=== PATIENT | male | born 1950 | race Caucasian/White ===

== ENCOUNTER 2017-02-16 19:29 | Emergency (ER) | payer MEDICARE ==
[~2017-02-16] VITALS: Ht 188 cm; Wt 100.0 kg
[~2017-02-16 19:29] MED LIST: /PANT40TA PO; CANNABIS OIL PO; CYCL10TA3 PO; DICY20TA11 PO; DOXY100T2 PO; ELIQ5TAB PO; EXTR500C4 PO; FENT25DI22 TD; FLAG500T PO; GAVISOL3 PO; LACT10SO29 PO; LEVO88TA3 PO; LINZ290C PO; LOVE0.01 SQ; METO50TA7 PO; MORP15TA2 PO; MS C15TA8 PO; NORC1TAB4 PO; OPDI1INJ IV; PERC5TAB PO; PERCOCET PO; PRED10TA PO; ROCE1INJ4 IM; SENN-23 PO; TOPR25TA PO; [UNRECOGNIZED DRUG - OTHER] PO
[2017-02-16] MEDS ORDERED: ZOFR8TAB PO (19:44)
[2017-02-16] MEDS ORDERED: FOLI800C PO (19:44)
[2017-02-16] MEDS ORDERED: LOPR1TAB6 PO (19:44)
[2017-02-16] MEDS ORDERED: ACETAMINOPHEN 325 MG TAB PO ONE (20:00)
[2017-02-16] MEDS ORDERED: NS 1,000 ML IV ONE (20:00)
[2017-02-16 20:22] LABS: ADD MORPHOLOGY? YES; BASO % 0.2 % (0.0-1.0); EOS # 0.2 K/mm3 (0.0-0.50); EOS % 2.2 % (0.0-3.0); LARGE UNSTAINED CELL # 0.2 K/mm3 (0.0-0.4); LYMPH # 0.8 K/mm3 (1.5-4.5); LYMPH % 6.2 % (24.0-44.0); MEAN CORPUSCULAR HGB CONC 33.3 g/dl (32.0-36.5); MEAN CORPUSCULAR VOLUME 108.2 fl (80.0-96.0); MONO # 0.2 K/mm3 (0.0-0.8); MONO % 2.1 % (0.0-5.0); NEUTROPHILS # 8.7 K/mm3 (1.8-7.7); NEUTROPHILS % 87.1 % (36.0-66.0); PLATELET COUNT, AUTOMATED 264 k/mm3 (150-450)
[2017-02-16 20:37] LABS: ALBUMIN 2.7 GM/DL (3.2-5.2); ALBUMIN/GLOBULIN RATIO 0.66 (1.00-1.93); BILIRUBIN,DIRECT 0.3 MG/DL (0.0-0.2); BILIRUBIN,TOTAL 0.7 MG/DL (0.2-1.0); CALCIUM LEVEL 8.8 MG/DL (8.8-10.2); CREATININE FOR GFR 1.29 MG/DL (0.70-1.30); GLOMERULAR FILTRATION RATE 59.1 (>49); TOTAL PROTEIN 6.8 GM/DL (6.4-8.2)
[2017-02-16 21:24] LABS: ABG PARTIAL PRESSURE CO2 29.4 mmHg (35.0-45.0); ABG PARTIAL PRESSURE O2 105.1 mmHg (75.0-100.0); ABG TOTAL CO2 20.9 MEQ/L (23.0-31.0)
[2017-02-16 21:40] LABS: ANISOCYTOSIS 2+; HOWELL-JOLLY BODIES 2+; HYPOCHROMASIA 1+; PLATELET CLUMPS SMALL AMT
[2017-02-16] MEDS ORDERED: ISOVUE-370 76% 100ML VIAL (Q9967) As Ordered ONE (22:23)
--- NOTE | 2017-02-16 23:10 | REPUSA ---
CT angiogram of the chest Clinical statement: dyspnea. Technique: Multiple axial CT images were obtained from the thoracic inlet through the upper abdomen a fter a bolus administration of nonionic intravenous contrast. Coronal and sagittal reconstructions we re also obtained. Comparison: 05/26/2016. Findings: The pulmonary arteries are well-opacified with contrast, with no intraluminal filling defec ts to suggest embolism. The thoracic aorta is unremarkable. Thyroid gland is within normal limits. Th ere is no thoracic lymphadenopathy. There is a persistent consolidation in the left perihilar region extending into the lingula of the left lung. Air bronchograms are seen within this region. A small le ft-sided pleural effusion remains. Bronchiectasis with mild parenchymal scarring in the medial aspect of the left upper lobe is also stable. The mild emphysematous changes are stable. Limited imaging of the upper abdomen is unremarkable. There is mild chronic anterior compression abnormality of T6, wit h sclerotic changes throughout the vertebral body. Impression: 1. No evidence of pulmonary embolism. 2. Persistent consolidation in the left perihilar region extending into the lingula. Although this co uld represent pneumonia, the persistent nature of this finding is suspicious for neoplasm. Follow-up is recommended as clinically indicated. 3. Stable bronchiectasis and parenchymal changes in the medial left upper lobe. 4. The right lung is clear. 5. Mild stable emphysema. 6. Stable compression fracture of T6.
--- NOTE | 2017-02-16 23:19 | REP ---
Clinical: Dyspnea and fever. Technique: PA and lateral. Comparison: 05/26/2016. Findings: Jwvyih-D-Nipc identified with tip in the SVC. Cardiac silhouette appears normal. Diffuse acute on chronic fibro atelectatic changes are noted bilaterally along with left perihilar mass-like consolidation which may be minimally improved when compared to prior examination. No new acute consolidation, obvious effusion or pneumothorax appreciated skeletal structures demonstrate osteopenia and degenerative changes. Impression: Left perihilar mass-like consolidation minimally improved compared to prior examination. Diffuse acute on chronic fibro atelectatic changes. Signed by Kei Martinez MD 02/16/2017 11:12 P
[2017-02-17 00:17] VITALS: BP_DIAS 69
--- NOTE | 2017-02-17 06:52 | ED PDOC ---
Post-Departure Follow-Up dr melgoza faxed formal report of cxr for fu Patricia Bower MD Feb 17, 2017 06:52
== END 2017-02-17 00:21 | disposition home or self-care (01) ==
LOC: M ED 19:29
DX: B34.9 Viral infection, unspecified (principal); R91.8 Other nonspecific abnormal finding of lung field; I10 Essential (primary) hypertension; E03.9 Hypothyroidism, unspecified; Z86.718 Personal history of other venous thrombosis and embolism; Z85.118 Personal history of other malignant neoplasm of bronchus and lung; Z87.891 Personal history of nicotine dependence; Z79.01 Long term (current) use of anticoagulants; Z79.899 Other long term (current) drug therapy; Z88.6 Allergy status to analgesic agent; Z91.02 Food additives allergy status
CPT/HCPCS: 36600; 71020; 71275; 80048; 80076; 81001; 82803; 83605; 85025; 87040; 87086; 96360; 99284; Q9967

== ENCOUNTER 2017-05-14 04:28 | Emergency (ER) | payer MEDICARE ==
[~2017-05-14] VITALS: Ht 188 cm; Wt 98.0 kg
[~2017-05-14 04:28] MED LIST changes: +FOLI800C PO; +LOPR1TAB6 PO; +ZOFR8TAB PO
[2017-05-14] MEDS ORDERED: MORP-38 PO (04:45)
[2017-05-14] MEDS ORDERED: GABA-283 PO (04:45)
[2017-05-14] MEDS ORDERED: MORP15TA2 PO (04:45)
[2017-05-14] MEDS ORDERED: ELIQ5TAB PO (04:45)
[2017-05-14] MEDS ORDERED: MORPHINE 4 MG/ML 1ML SYRINGE IV ONE (05:30)
--- NOTE | 2017-05-14 07:20 | REPUSA ---
CLINICAL HISTORY: Trauma. TECHNIQUE: Multiple axial CT images were obtained through the brain without IV contrast material. COMMENTS: There is normal configuration of sella turcica. There are no intra or extra-axial collections. There is no mass effect or midline shift. There is no evidence of hematoma formation. No hydrocephalus is p resent. The ventricles are symmetrical. No abnormal calcifications are present. There is diffuse age-appropriate cerebellar and cerebral atrophy with proportionally dilated ventricl es and cortical sulci. There are bilateral periventricular and subcortical white matter hypolucencies compatible with mild c hronic microvascular disease. Otherwise, no significant focal abnormalities are seen either in the posterior fossa or supratentoria l compartment. Mild chronic mucosal inflammatory changes of the maxillary sinuses and ethmoid air cells. IMPRESSION: 1. Age-appropriate cerebellar and cerebral atrophy. 2. Mild chronic microvascular disease. 3. No evidence of acute intracranial pathology. Thank you for your kind referral of this patient.
--- NOTE | 2017-05-14 07:40 | REPUSA ---
CLINICAL HISTORY: Neck pain. TECHNIQUE: Multiple axial images were obtained through the cervical spine. Images were also reconstru cted in coronal and sagittal planes. The study was performed without IV contrast. COMMENTS: Detached osteophyte adjacent to the inferior endplate of C3. Chronic finding. There is no fracture or spondylolisthesis visualized. The paraspinal soft tissues are unremarkable. T here are no lytic or blastic lesions. 2.5 mm retrolisthesis of C5 on C6. Straightening of cervical lordosis is seen, suggesting muscular spasm. There is evidence of moderate multilevel disk disease, demonstrated by osteophytosis and endplate sclerosis. Moderate multilevel degenerative disc disease. IMPRESSION: 1. No fracture or spondylolisthesis. 2. Straightening of cervical lordosis is seen, suggesting muscular spasm. 3. Mltilevel spondylosis. Thank you for your kind referral of this patient.
--- NOTE | 2017-05-14 07:40 | REPUSA ---
CLINICAL HISTORY: Trauma. TECHNIQUE: Multiple axial CT images were obtained through the thoracic spine without IV contrast mate rial. MPR coronal and sagittal sequences were obtained. COMMENTS: Mild osteopenia of visualized bones. Moderate chronic compression fracture of T5 vertebral body with associated vertebral body sclerosis. Suspicion of superimposed inferior endplate to minimally acute/subacute compression deformity. Significant fat stranding surrounding the T5 vertebral body. Mild chronic compression deformities of the remaining thoracic vertebral bodies with prominent Schmor l's node formation. There are diffuse spondylotic changes. Findings are demonstrated by disc space narrowing, osteophyte formation and degenerative endplate changes. Facet joint arthropathy and degenerative uncovertebral j oint disease. No dislocation is seen. No aggressive bone lesion is noted. IMPRESSION: Mild osteopenia of visualized bones. Moderate chronic compression fracture of T5 vertebral body with associated vertebral body sclerosis. Suspicion of superimposed inferior endplate to minimally acute/subacute compression deformity. Chronic increased dorsal kyphosis. No associated retropulsion or secondary canal stenosis. Significant fat stranding surrounding the T5 vertebral body. Thank you for your kind referral of this patient.
--- NOTE | 2017-05-14 08:00 | REPUSA ---
CLINICAL HISTORY: Back pain. TECHNIQUE: Multiple axial images were obtained through the L1-L2, L2-L3, L3-L4, L4-L5 and L5-S1 inter spaces. Images were also reconstructed in coronal and sagittal planes. COMMENTS: Grade one anterolisthesis of L5 on S1 measuring 4.2 mm. There is no fracture visualized. The paraspinal soft tissues are unremarkable. There are no lytic or blastic lesions. Straightening of lumbar lordosis is seen, suggesting muscular spasm. There is evidence of multilevel disk disease, demonstrated by osteophytosis ad endplate sclerosis. Evaluation of individual levels reveals the following: At L4-L5 and L5-S1, broad-based disk protrusion in conjunction with hypertrophic facet disease result s in moderate bilateral foraminal narrowing. Canal is mildly stenotic. At L3-L4, broad-based disk bulge, results in mild bilateral foraminal narrowing. Canal is patent. L1-L2 and L2-L3 levels are unremarkable. IMPRESSION: 1. No fracture. Grade 1 anterolisthesis of L5 on S1 measuring 4.2 mm. 2. Straightening of lumbar lordosis is seen, suggesting muscular spasm. 3. At L4-L5 and L5-S1, broad-based disk protrusion in conjunction with hypertrophic facet disease res ults in moderate bilateral foraminal narrowing. . Canal is mildly stenotic. 4. At L3-L4, broad-based disk bulge, results in mild bilateral foraminal narrowing. Canal is patent. Thank you for your kind referral of this patient.
[2017-05-14] MEDS ORDERED: OXYC1TAB23 PO (08:10)
[2017-05-14] MEDS ORDERED: PERCOCET 5MG/325MG TAB PO ONE (08:15)
--- NOTE | 2017-05-14 10:26 | REP ---
Clinical: Left upper quadrant mass. Technique: Axial noncontrast images of the abdomen with coronal and sagittal re-formations. Comparison: 05/25/2016. Findings: Lung bases demonstrate small to moderate left pleural effusion with trace left lower lobe atelectasis and diffuse chronic interstitial changes/mild fibrosis. Chronic-appearing stranding and multiple small soft tissue nodules - some of which demonstrate central calcification are identified in the left upper quadrant with associated evidence for prior splenectomy. These findings may represent chronic post traumatic/post surgical changes and small regenerative splenules, and findings appear relatively similar to 2016 without increase. Liver, pancreas, bilateral adrenal glands and kidneys are relatively normal for noncontrast evaluation. Gallbladder is mildly distended with evidence for cholelithiasis, but no CT evidence for acute cholecystitis. Visualized portions of the enteric system appear relatively normal. No free air. No ascites. Atherosclerotic changes of the aorta noted along with IVC filter. Musculoskeletal structures demonstrate degenerative changes. Surrounding subcutaneous soft tissues appear relatively symmetric and without obvious hernia. Impression: 1. Lung wiggins demonstrate a small to moderate left pleural effusion with basilar atelectasis. 2. Mildly distended gallbladder with cholelithiasis but no CT evidence for acute cholecystitis. 3. Chronic-appearing nodular soft tissue lesions and stranding/infiltration in the left upper quadrant related to prior splenectomy. These findings appear relatively stable and possibly improved when compared to 2016 without new abnormality. 4. No further acute abdominal pathology is appreciated. Signed by Kei Martinez MD 05/14/2017 10:18 A
[2017-05-14] MEDS ORDERED: MORP30TASA PO (10:37)
[2017-05-14 10:54] VITALS: BP 146/69
== END 2017-05-14 11:04 | disposition home or self-care (01) ==
LOC: M ED 04:28
DX: S22.050A Wedge compression fracture of T5-T6 vertebra, initial encounter for closed fracture (principal); W10.9XXA Fall (on) (from) unspecified stairs and steps, initial encounter; Y92.9 Unspecified place or not applicable; Y93.9 Activity, unspecified; Y99.9 Unspecified external cause status; I10 Essential (primary) hypertension; C34.90 Malignant neoplasm of unspecified part of unspecified bronchus or lung; Z79.899 Other long term (current) drug therapy; Z86.718 Personal history of other venous thrombosis and embolism; Z87.891 Personal history of nicotine dependence; J90 Pleural effusion, not elsewhere classified; K82.8 Other specified diseases of gallbladder; K80.20 Calculus of gallbladder without cholecystitis without obstruction; R19.02 Left upper quadrant abdominal swelling, mass and lump; M47.892 Other spondylosis, cervical region; M43.16 Spondylolisthesis, lumbar region; M43.17 Spondylolisthesis, lumbosacral region; M51.26 Other intervertebral disc displacement, lumbar region; M51.27 Other intervertebral disc displacement, lumbosacral region; M85.88 Other specified disorders of bone density and structure, other site; Z79.01 Long term (current) use of anticoagulants; Z88.6 Allergy status to analgesic agent; Z91.02 Food additives allergy status

== ENCOUNTER 2017-06-02 18:20 | Inpatient (IN) | payer MEDICARE ==
[~2017-06-02] VITALS: Ht 182.9 cm; Wt 86.9 kg
[~2017-06-02 18:20] MED LIST changes: +GABA-283 PO; +MORP-38 PO; +MORP30TASA PO; +OXYC1TAB23 PO
[2017-06-02] MEDS ORDERED: ELIQ5TAB PO (18:37)
[2017-06-02] MEDS ORDERED: METO50TA7 (18:37)
[2017-06-02] MEDS: IPRATROPIUM 0.5MG/ALBUTEROL 2.5MG INH SOL UD 3ML (DUONEB)(J7620) NEB PRN ×2 (20:17→20:18)
[2017-06-02 20:19] LABS: ABG BASE EXCESS -1.4 (-2.0-2.0); ABG HCO3 21.2 MEQ/L (22.0-26.0); ABG PARTIAL PRESSURE CO2 27.4 mmHg (35.0-45.0); ABG PARTIAL PRESSURE O2 69.4 mmHg (75.0-100.0); ABG STANDARD HCO3 23.3 MEQ/L (22.0-26.0); ABG TOTAL CO2 22.1 MEQ/L (23.0-31.0); ABG pH (ARTERIAL) 7.507 UNITS (7.350-7.450)
[2017-06-02 20:38] LABS: MEAN CORPUSCULAR HEMOGLOBIN 33.9 pg (27.0-33.0); MEAN CORPUSCULAR HGB CONC 32.4 g/dl (32.0-36.5); MEAN CORPUSCULAR VOLUME 104.8 fl (80.0-96.0); PLATELET COUNT, AUTOMATED 575 10^3/uL (150-450)
[2017-06-02 21:00] LABS: ADD MANUAL DIFFER YES; DIFF SLIDE NUMBER 349; POSITIVE DIFF POS FLAG
[2017-06-02 21:04] LABS: ANION GAP 10 MEQ/L (8-16); BLOOD UREA NITROGEN 15 MG/DL (7-18); CARBON DIOXIDE LEVEL 23 MEQ/L (21-32); CHLORIDE LEVEL 105 MEQ/L (98-107); CREATININE FOR GFR 1.17 MG/DL (0.70-1.30); GLOMERULAR FILTRATION RATE > 60.0 (>49); GLUCOSE, FASTING 118 MG/DL (80-110); POTASSIUM SERUM 3.8 MEQ/L (3.5-5.1); SODIUM LEVEL 138 MEQ/L (136-145)
[2017-06-02 21:05] LABS: ANISOCYTOSIS 3+; HOWELL-JOLLY BODIES 2+
[2017-06-02] MEDS ORDERED: ISOVUE-370 76% 100ML VIAL (Q9967) As Ordered ONE (21:05)
[2017-06-02 21:06] LABS: ALBUMIN 1.9 GM/DL (3.2-5.2); ALBUMIN/GLOBULIN RATIO 0.4 (1.00-1.93); BILIRUBIN,DIRECT 0.2 MG/DL (0.0-0.2); BILIRUBIN,TOTAL 0.5 MG/DL (0.2-1.0); POIKILOCYTOSIS 1+; POLYCHROMASIA 1+; TOTAL PROTEIN 6.7 GM/DL (6.4-8.2)
[2017-06-02] MEDS ORDERED: ONDANSETRON 4MG/2ML VIAL (J2405) IV ONE (21:15)
[2017-06-02] MEDS: MORPHINE 4 MG/ML 1ML SYRINGE IV PRN (21:15)
--- NOTE | 2017-06-02 21:40 | REPUSA ---
CT angiogram of the chest Clinical statement: shortness of breath. Technique: Multiple axial CT images were obtained from the thoracic inlet through the upper abdomen a fter a bolus administration of nonionic intravenous contrast. Coronal and sagittal reconstructions we re also obtained. Comparison: 05/26/2016. Findings: The pulmonary arteries are well-opacified with contrast, with no intraluminal filling defec ts to suggest embolism. The thoracic aorta is unremarkable. Thyroid gland is within normal limits. Th ere is no thoracic lymphadenopathy. There are extensive ground glass infiltrates throughout the lungs , with upper lobe predominance. There is a moderate left-sided pleural effusion. Limited imaging of t he upper abdomen is unremarkable. There are no suspicious osseous lesions. Impression: 1. No evidence of pulmonary embolism. 2. Extensive ground glass infiltrates throughout the lungs, with upper lobe predominance. These findi ngs are new since the prior study of 2015. The findings could represent infectious or inflammatory pu lmonary processes. Follow-up is recommended as clinically indicated. 3. Moderate left-sided pleural effusion.
[2017-06-02] MEDS ORDERED: PIPERACILLIN/TAZOBACTAM SOD 3.375 GM in APPROPRIATE DILUENT 1 EA IV ONE ×2 (22:00→22:20)
[2017-06-02] MEDS ORDERED: MORP30TASA PO (22:55)
[2017-06-02] MEDS ORDERED: FLOM5CAP PO (22:55)
[2017-06-02] MEDS ORDERED: NS 1,000 ML IV SCH (23:46)
[2017-06-03] MEDS ORDERED: ONDANSETRON 4 MG TAB (S0181) PO PRN
[2017-06-03] MEDS ORDERED: PERCOCET 5MG/325MG TAB PO PRN
[2017-06-03] MEDS ORDERED: VANCOMYCIN HCL 1,000 MG, VIAL MATE ADAPTER 1 EACH in D5W 250 ML IV ONE ×3
[2017-06-03 00:32] LABS: ERYTHROCYTE SEDIMENTATION RATE 128 mm/hr (0-20)
--- NOTE | 2017-06-03 00:46 | HPE ---
DATE OF ADMISSION: 06/02/2017 PRIMARY CARE PROVIDER: Dr. Damon. ONCOLOGIST: Dr. William in [facility]. HISTORY OF PRESENT ILLNESS: This patient is a 66-year-old male with a past medical history significant for stage IV non-small cell lung cancer, history of left deep venous thrombosis (DVT), hypertension, presented to [facility] on 06/02/2017 for acute shortness of breath. Patient was diagnosed with non-small cell lung cancer since July 2009 and patient has metastases to the abdomen. In this year alone, patient has been receiving 12 rounds of chemotherapy. Patient is scheduled to follow with oncology on 06/03/2017 to assess the cancer metastases. However, in the last 4-5 days, patient started having fever and chills. Patient started to have increased shortness of breath during ambulation in the last 3 days. Now patient has shortness of breath at rest. Denies any cough or sputum production. When patient came to the emergency room, patient was found to have bilateral multifocal pneumonia and hospitalist team was called for admission. PAST MEDICAL HISTORY: 1. Non-small cell lung cancer diagnosed in July 2009, now with stage IV with abdominal metastases. 2. Hypertension. 3. History of DVT. 4. Hypothyroidism. PAST SURGICAL HISTORY: 1. Splenectomy. 2. Inferior vena cava (IVC) filter. 3. Cataract surgery. SOCIAL HISTORY: Patient quit smoking 17 years ago. Patient has been smoking since 16 years old. Smoked greater than one pack a day. Denied alcohol use. Denied recreational drug use. Patient is FULL CODE. REVIEW OF SYSTEMS: GENERAL: Positive fever, chills for the past few days. HEENT: No vision changes. No auditory changes. CARDIOVASCULAR: Denied any chest pain or palpitations. RESPIRATORY: Positive shortness of breath, initially during ambulation only, now patient has shortness of breath during rest. Denies any sputum production. Denies any cough. GASTROINTESTINAL: Patient has lung cancer metastases to the abdomen. Tender to palpation mainly on the left abdomen. No nausea. No vomiting. No diarrhea. MUSCULOSKELETAL: Chronic muscle pain. NEUROLOGICAL: Denied any new numbness or tingling. HOME MEDICATIONS: - Eliquis 5 mg by mouth twice a day - senna-S one tablet by mouth twice a day - Synthroid 88 mcg by mouth daily - metoprolol tartrate 50 mg by mouth twice a day - morphine sulfate 30 mg by mouth twice a day - Zofran 8 mg by mouth every 8 hours as needed - Percocet one tablet by mouth every 4 hours as needed - Flomax 0.4 mg by mouth daily OBJECTIVE: VITAL SIGNS: Temperature 98.2, pulse 100, respirations 16, blood pressure 117/67, pulse oximetry is 92% with 2 liters nasal cannula. GENERAL: Mild to moderate distress secondary to persistent shortness of breath. Alert and oriented times three. HEENT: Normocephalic, atraumatic. Extraocular motor grossly intact. Wearing corrective lenses. CARDIOVASCULAR: Positive systolic murmur, positive S1, S2, regular rate. LUNGS: Positive crackles bilaterally, but I cannot appreciate any significant wheezes. ABDOMEN: Tender to palpation right lateral to the mid abdomen. Patient stated that is where his cancer metastasis is located. Bowel sounds present. No rebound. EXTREMITIES: No edema. No cyanosis. NEUROLOGICAL: Sensation to fine touch grossly intact. Muscle strength 5/5. LABORATORY DATA: WBC 16, hemoglobin 7.8, hematocrit 24.1, platelet count is 575. Sodium is 138, potassium 3.8, chloride 105, carbon dioxide is 23, BUN 15, creatinine 1.17, GFR greater than 60, fasting glucose 118, calcium 9, total bilirubin 0.5, direct bilirubin 0.2, AST 30, ALT 15, alkaline phosphatase 152, total protein 6.7, albumin 1.9. IMAGING STUDIES: CT angiogram of the chest no evidence of PE. Extensive ground-glass infiltrates throughout the lungs with upper lobe predominance. Moderate left-sided pleural effusion. ASSESSMENT AND PLAN: 1. Multifocal pneumonia. Patient admitted to the progressive care unit (PCU) under inpatient status. Patient is immunocompromised from the chemotherapy. Followup with sputum. Blood cultures pending. Will start on broad-spectrum antibiotics vancomycin and Zosyn. Currently, patient's blood pressure has remained stable. 2. Stage IV non-small cell lung cancer. Patient just had 12 rounds of chemotherapy done in [facility]. Patient's oncologist is Dr. William. 3. History of hypertension. Blood pressure is in a satisfactory range at this moment. Continue home medications. 4. Hypothyroidism. Continue Synthroid. Followup with thyroid-stimulating hormone (TSH) tomorrow. 5. History of deep venous thrombosis (DVT). Patient has inferior vena cava (IVC) filter. Patient is on Xarelto. 6. DVT prophylaxis. Patient is on Xarelto.
[2017-06-03] MEDS: MORPHINE 4 MG/ML 1ML SYRINGE IV PRN (00:53)
[2017-06-03] MEDS: APIXABAN 5 MG TAB (ELIQUIS) PO SCH ×3 (01:46→21:24)
[2017-06-03] MEDS: METOPROLOL TART 50 MG TAB PO SCH ×3 (01:46→21:24)
[2017-06-03 02:03] LABS: REASON FOR REVIEW COMPREHENSIVE REVIEW
[2017-06-03] MEDS: PERCOCET 5MG/325MG TAB PO PRN ×4 (02:59→17:24)
[2017-06-03 04:00] VITALS: BP 117/62
[2017-06-03] MEDS: MORPHINE 2 MG/ML 1ML SYRINGE IV PRN ×3 (04:29→19:35)
[2017-06-03] MEDS: PIPERACILLIN/TAZOBACTAM SOD 3.375 GM in APPROPRIATE DILUENT 1 EA IV SCH ×4 (04:45→22:55)
[2017-06-03 05:09] LABS: MEAN CORPUSCULAR HEMOGLOBIN 34.1 pg (27.0-33.0); MEAN CORPUSCULAR HGB CONC 32.1 g/dl (32.0-36.5); MEAN CORPUSCULAR VOLUME 106.3 fl (80.0-96.0); PLATELET COUNT, AUTOMATED 540 10^3/uL (150-450); RED CELL DISTRIBUTION WIDTH 21.6 % (11.5-14.5); WHITE BLOOD COUNT 14.5 10^3/uL (4.0-10.0)
--- NOTE | 2017-06-03 05:09 | PHACANCOPD ---
PHARMACY VANCOMYCIN DOSING Pt Demographics Demographics Patient Age:66 , Weight:90.910 , Gender: male Adjusted Body Weight Date: 06/03/17, Adjusted Body Weight: [85.7] Kg Vancomycin Vancomycin indication: MULTIFOCAL PNEUMONIA Vancomycin Target Ranges: 15-20 mcg/ml Vancomycin Load Y/N: No Load Dose Date Time Vancomycin Load Dose: Date: Time: Vancomycin Dose Date: 06/03/17. Current Vancomycin Dose: [1GM@0130,then Q12h@06] Intermittent Dosing?: No Labs Labs Laboratory Tests 06/02/17 20:24 Red Blood Count 2.30 L, Mean Corpuscular Volume 104.8 H, Mean Corpuscular Hemoglobin 33.9 H, Mean Corpuscular Hemoglobin Concent 32.4, Red Cell Distribution Width 22.0 H, Monocytes # (Auto) , Calcium Level 9.0, Total Creatine Kinase 173 Micro Microbiology 06/02/17 Blood Culture, Received Pending 06/02/17 Blood Culture, Received Pending 06/02/17 Respiratory Virus Panel (PCR) (RO[facility]ANNE) - Final, Complete 06/02/17 Influenza Virus Type A Antigen - Final, Complete 06/02/17 Influenza Virus Type B Antigen - Final, Complete Creatinine Clearance Date:06/03/17. Creatinine Clearance: [74.3]calculated. Pending Labs Vancomycin trough due 06/04@0500 Assessment and Plan Maintaining Current Dose?: Yes Reason for dose change: No Dose Change Pharmacist Note Pharmacist Note Date: 06/03/17. Pharmacist note:[id number] admitted w/multifocal pneumonia.Ht=74",Wt= 90.91 kg,Scr=1.17,calculated CRCL=74.3,Treating with Pip/Tazo 3.375 Gm IV Q6H plus Vancomycin per Pharmacy consult.Vancomycin 1 GM in ED 06/03@0130,then will begin 1 gram IV Q6H 06/03@0600. First trough is to be drawn 06/04@0500(prior to thr 4th dose).Will continue to follow levels and labs MEI [facility] Jun 03, 2017 05:09
[2017-06-03 05:42] LABS: ANION GAP 10 MEQ/L (8-16); BLOOD UREA NITROGEN 14 MG/DL (7-18); CALCIUM LEVEL 8.5 MG/DL (8.8-10.2); CARBON DIOXIDE LEVEL 24 MEQ/L (21-32); CHLORIDE LEVEL 105 MEQ/L (98-107); CREATININE FOR GFR 1.07 MG/DL (0.70-1.30); GLOMERULAR FILTRATION RATE > 60.0 (>49); GLUCOSE, FASTING 99 MG/DL (80-110); POTASSIUM SERUM 3.7 MEQ/L (3.5-5.1); SODIUM LEVEL 139 MEQ/L (136-145)
[2017-06-03] MEDS ORDERED: HEPARIN SOD (PORCINE) 5000 UNITS/ML VIAL SC SCH (06:00)
[2017-06-03] MEDS ORDERED: VANCOMYCIN HCL 1,000 MG, VIAL MATE ADAPTER 1 EACH in D5W 250 ML IV SCH (06:00)
[2017-06-03] MEDS: LEVOTHYROXINE 88MCG TABLET (0.088 MG) PO SCH (06:36)
[2017-06-03 08:00] VITALS: BP 112/55
--- NOTE | 2017-06-03 08:51 | IPNPDOC ---
Text Note Date of Service The patient was seen on 06/03/17. NOTE Subjective: Patient seen and examined at bedside. Still complains of shortness of breath although he feels this has improved. Also admits to polyuria, denies dysuria. OBJECTIVE: VITAL SIGNS: Temperature 98.2, pulse 100, respirations 16, blood pressure 117/67, pulse oximetry is 92% with 2 liters nasal cannula. GENERAL: Mild to moderate distress secondary to persistent shortness of breath. Alert and oriented times three. HEENT: Normocephalic, atraumatic. Extraocular motor grossly intact. Wearing corrective lenses. CARDIOVASCULAR: Positive systolic murmur, positive S1, S2, regular rate. LUNGS: Positive crackles bilaterally, but I cannot appreciate any significant wheezes. ABDOMEN: Tender to palpation right lateral to the mid abdomen. Patient stated that is where his cancer metastasis is located. Bowel sounds present. No rebound. EXTREMITIES: No edema. No cyanosis. NEUROLOGICAL: Sensation to fine touch grossly intact. Muscle strength 5/5. ASSESSMENT AND PLAN: 1. Multifocal pneumonia. - complicated with immunocompromise secondary to chemotherapy - cultures pending - continue broad spectrum abx - vanc/zosyn 2. Stage IV non-small cell lung cancer. Patient just had 12 rounds of chemotherapy done in [facility]. Patient's oncologist is Dr. William. 3. History of hypertension. Blood pressure is in a satisfactory range at this moment. Continue home medications. 4. Hypothyroidism. Continue Synthroid. Followup with thyroid-stimulating hormone (TSH) tomorrow. 5. History of deep venous thrombosis (DVT). Patient has inferior vena cava (IVC) filter. Patient is on Xarelto. 6. DVT prophylaxis. Patient is on Xarelto. VS,Fishbone, I+O VS, Fishbone, I+O Laboratory Tests 06/02/17 20:24 Red Blood Count 2.30 L, Mean Corpuscular Volume 104.8 H, Mean Corpuscular Hemoglobin 33.9 H, Mean Corpuscular Hemoglobin Concent 32.4, Red Cell Distribution Width 22.0 H, Monocytes # (Auto) , Calcium Level 9.0, Total Creatine Kinase 173 06/03/17 04:27 Red Blood Count 2.05 L, Mean Corpuscular Volume 106.3 H, Mean Corpuscular Hemoglobin 34.1 H, Mean Corpuscular Hemoglobin Concent 32.1, Red Cell Distribution Width 21.6 H, Calcium Level 8.5 L Vital Signs Date Time Temp Pulse Resp B/P (MAP) Pulse Ox O2 Delivery O2 Flow Rate FiO2 06/03/17 08:00 97.6 70 22 112/55 (74) 94 Nasal Cannula 2.0 06/02/17 23:45 96 I&O- Last 24 Hours up to 6 AM 06/04/17 06:00 Intake Total 0 ml Balance 0 ml ESE OLSON MD Jun 03, 2017 08:51
[2017-06-03] MEDS: TAMSULOSIN 0.4 MG CAP PO SCH (09:37)
[2017-06-03] MEDS: SENOKOT S TAB PO SCH ×2 (09:37→21:24)
[2017-06-03] MEDS: MORPHINE 30 MG SA TAB PO SCH ×2 (09:38→21:37)
[2017-06-03] MEDS: VANCOMYCIN HCL 1,000 MG, VIAL MATE ADAPTER 1 EACH in D5W 250 ML IV SCH ×2 (09:39→21:24)
[2017-06-03 12:00] VITALS: BP 120/60
[2017-06-03 16:00] VITALS: BP 115/58
[2017-06-03 20:00] VITALS: BP 117/65
--- NOTE | 2017-06-03 21:07 | ECGEPIP ---
Stationary ECG Study [facility] - ED Test Date: 2017-06-02 Pat Name: CAROLYN MELLO Department: Room: [place] [address] Gender: M Gardening Supervisor: kaveh : [id number] Requested By: AYAKA Myers Order Number: [id number] Reading MD: Urvashi Hernandez Measurements Intervals [place] Rate: 70 P: 8 LA: 158 QRS: 31 QRSD: 111 T: 23 QT: 410 QTc: 443 Interpretive Statements SINUS RHYTHM WITH SINUS ARRHYTHMIA MODERATE INTRAVENTRICULAR CONDUCTION DELAY NSTTW ABNORMALITY INCREASED RATE 05/25/16 Electronically Signed On 06-03-2017 21:07:31 EST by Urvashi Hernandez
[2017-06-04] VITALS (8 sets, daily range): BP systolic 118–145; BP diastolic 63–80
[2017-06-04] MEDS: ACETAMINOPHEN TAB 650MG DOSE (2X325MG) PO PRN (00:16)
[2017-06-04] MEDS ORDERED: SODIUM CHLORIDE 0.9% INJ 10 ML SYR IV ONE (02:00)
[2017-06-04] MEDS ORDERED: LIDOCAINE 2% 5ML JELLY UROJET TOP ONE (02:45)
[2017-06-04] MEDS ORDERED: LIDOCAINE 2% JELLY 30 ML TOP ONE (02:45)
[2017-06-04] MEDS: MORPHINE 2 MG/ML 1ML SYRINGE IV PRN ×2 (03:28→11:52)
[2017-06-04 05:29] LABS: MEAN CORPUSCULAR HEMOGLOBIN 33.6 pg (27.0-33.0); MEAN CORPUSCULAR HGB CONC 32.3 g/dl (32.0-36.5); MEAN CORPUSCULAR VOLUME 104.2 fl (80.0-96.0); PLATELET COUNT, AUTOMATED 542 10^3/uL (150-450); RED CELL DISTRIBUTION WIDTH 22.6 % (11.5-14.5); WHITE BLOOD COUNT 15.4 10^3/uL (4.0-10.0)
[2017-06-04] MEDS: PIPERACILLIN/TAZOBACTAM SOD 3.375 GM in APPROPRIATE DILUENT 1 EA IV SCH ×4 (05:41→23:42)
[2017-06-04] MEDS: LEVOTHYROXINE 88MCG TABLET (0.088 MG) PO SCH (05:42)
[2017-06-04 05:45] LABS: ANION GAP 9 MEQ/L (8-16); BLOOD UREA NITROGEN 12 MG/DL (7-18); CALCIUM LEVEL 8.3 MG/DL (8.8-10.2); CARBON DIOXIDE LEVEL 22 MEQ/L (21-32); CHLORIDE LEVEL 108 MEQ/L (98-107); CREATININE FOR GFR 1.07 MG/DL (0.70-1.30); GLOMERULAR FILTRATION RATE > 60.0 (>49); GLUCOSE, FASTING 115 MG/DL (80-110); POTASSIUM SERUM 3.8 MEQ/L (3.5-5.1); SODIUM LEVEL 139 MEQ/L (136-145)
--- NOTE | 2017-06-04 07:53 | IPNPDOC ---
Text Note Date of Service The patient was seen on 06/04/17. NOTE Subjective: Patient seen and examined at bedside. Still complains of shortness of breath. Overnight events significant for urinary retention, s/p catheter placement. OBJECTIVE: VITAL SIGNS: Temperature 98.2, pulse 100, respirations 16, blood pressure 117/67, pulse oximetry is 92% with 2 liters nasal cannula. GENERAL: Mild to moderate distress secondary to persistent shortness of breath. Alert and oriented times three. HEENT: Normocephalic, atraumatic. Extraocular motor grossly intact. Wearing corrective lenses. CARDIOVASCULAR: Positive systolic murmur, positive S1, S2, regular rate. LUNGS: Positive crackles bilaterally, but I cannot appreciate any significant wheezes. ABDOMEN: Tender to palpation right lateral to the mid abdomen. Patient stated that is where his cancer metastasis is located. Bowel sounds present. No rebound. EXTREMITIES: No edema. No cyanosis. NEUROLOGICAL: Sensation to fine touch grossly intact. Muscle strength 5/5. ASSESSMENT AND PLAN: 1. Multifocal pneumonia. - complicated with immunocompromise secondary to chemotherapy - cultures pending - continue broad spectrum abx - vanc/zosyn - mrsa screen pending 2. SOB - as per #1 possibly complicated with left pleural effusion - cxr / abg pending - consider cts c/s for further input regarding pleural effusion 3. urinary retention - ct a/p pending for eval obstruction - mcgowan catheter for now 4. Stage IV non-small cell lung cancer. Patient just had 12 rounds of chemotherapy done in [facility]. Patient's oncologist is Dr. William. 5. History of hypertension. Blood pressure is in a satisfactory range at this moment. Continue home medications. 6. Hypothyroidism. Continue Synthroid. Followup with thyroid-stimulating hormone (TSH) tomorrow. 7. History of deep venous thrombosis (DVT). Patient has inferior vena cava (IVC) filter. Patient is on Xarelto. 8. DVT prophylaxis. Patient is on Xarelto. VS,Fishbone, I+O VS, Fishbone, I+O Laboratory Tests 06/03/17 14:57 06/03/17 22:01 06/04/17 05:09 Red Blood Count 2.38 L, Mean Corpuscular Volume 104.2 H, Mean Corpuscular Hemoglobin 33.6 H, Mean Corpuscular Hemoglobin Concent 32.3, Red Cell Distribution Width 22.6 H, Calcium Level 8.3 L Vital Signs Date Time Temp Pulse Resp B/P (MAP) Pulse Ox O2 Delivery O2 Flow Rate FiO2 06/04/17 06:00 90 Nasal Cannula 3.0 06/04/17 04:00 98.5 75 24 137/75 (95) 06/02/17 23:45 96 ESE OLSON MD Jun 04, 2017 07:53
--- NOTE | 2017-06-04 09:20 | REP ---
PA and lateral chest: Comparison is 04/28/2017. There is a left hilar mass. This appears to have increased in size today measuring 4.6 cm craniocaudad. There are new patchy densities inferior to this mass, in the left upper lobe and throughout the entire right lung as interval changes. These could represent metastases, patchy infiltrates, or combination. There is a right IJ Bzwfee-N-Ookf with the tip in the right atrium, unchanged Signed by Stevo Carter MD 06/04/2017 09:08 A
--- NOTE | 2017-06-04 09:30 | REP ---
CT of the abdomen pelvis without IV or bowel contrast: Comparison is 05/14/2017. The visualized lower lung wiggins demonstrate small bilateral pleural effusions. The left pleural effusion is slightly larger. The left pleural effusion is unchanged. The tiny right pleural effusion was not present previously. There are multiple patchy ground-glass densities in the visualized right lower lobe and inferior right middle lobe, not present previously, compatible with subsegmental infiltrates. The unenhanced hepatic parenchyma is homogeneous. There is a small gallbladder calculus. This is unchanged. The gallbladder is otherwise unremarkable. The pancreas is unremarkable. 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 The adrenals are unremarkable. There are no renal calculi. There is no hydronephrosis. There are no ureteral or bladder calculi. There is a Georges catheter in the bladder and the bladder is collapsed. There is mild aneurysmal dilatation of the infrarenal abdominal aorta measuring 3.1 cm in diameter. Just above this level of the aorta measures 2.5 cm just below this level of the aorta measures 2.6 cm in diameter. There is a Hallieford filter in the inferior vena cava, unchanged. There is no bowel distension or obstruction. Mesentery is unremarkable. No ascites. Pelvis: There is a Georges catheter in the bladder. There is no adenopathy or ascites. The pelvic bowel loops are unremarkable. Impression: Small left pleural effusion, unchanged. New tiny right pleural effusion. Multiple ground-glass densities throughout the visualized right lung compatible with subsegmental infiltrates, not present previously. Postsurgical changes in the splenic bed are again identified. There is a gallbladder calculus, unchanged. There is no hydronephrosis or hydroureter. There are no renal calculi. No ureteral calculi. No bladder calculi. There is an abdominal aortic aneurysm as described. There is a Cindy filter in the vena cava. Signed by Stevo Carter MD 06/04/2017 09:20 A
[2017-06-04] MEDS: MORPHINE 30 MG SA TAB PO SCH ×2 (09:32→22:12)
[2017-06-04] MEDS: APIXABAN 5 MG TAB (ELIQUIS) PO SCH ×2 (09:32→22:10)
[2017-06-04] MEDS: VANCOMYCIN HCL 1,000 MG, VIAL MATE ADAPTER 1 EACH in D5W 250 ML IV SCH ×2 (09:32→22:13)
[2017-06-04] MEDS: TAMSULOSIN 0.4 MG CAP PO SCH (09:33)
[2017-06-04] MEDS: METOPROLOL TART 50 MG TAB PO SCH ×2 (09:33→22:11)
[2017-06-04] MEDS: SENOKOT S TAB PO SCH ×2 (09:33→22:12)
[2017-06-04 09:36] LABS: ABG BASE EXCESS -1.8 (-2.0-2.0); ABG HCO3 21.1 MEQ/L (22.0-26.0); ABG PARTIAL PRESSURE CO2 29.3 mmHg (35.0-45.0); ABG PARTIAL PRESSURE O2 53.6 mmHg (75.0-100.0); ABG STANDARD HCO3 22.8 MEQ/L (22.0-26.0); ABG pH (ARTERIAL) 7.476 UNITS (7.350-7.450)
[2017-06-04] MEDS: PERCOCET 5MG/325MG TAB PO PRN ×2 (10:43→17:09)
--- NOTE | 2017-06-04 13:25 | PHACANCOPD ---
PHARMACY VANCOMYCIN DOSING Pt Demographics Demographics Patient Age:66 , Weight:91.200 , Gender: male Adjusted Body Weight Date: 06/03/17, Adjusted Body Weight: [85.7] Kg Events Past 24 Hours Events Past 24 Hours: NO: Dialysis, Diuretic Therapy, Change in CrCl, Fever, Elevation in WBC, Pending Diagnostics, Pending Procedures, Other Vancomycin Vancomycin indication: MULTIFOCAL PNEUMONIA Vancomycin Target Ranges: 15-20 mcg/ml Vancomycin Load Y/N: No Load Dose Date Time Vancomycin Load Dose: Date: Time: Vancomycin Dose Date: 06/03/17. Current Vancomycin Dose: [1GM@0130,then Q12h@06] Intermittent Dosing?: No Labs Labs Item Value Date Time White Blood Count 15.4 10^3/uL H 06/04/17 0509 C-Reactive Protein, Quantitative 19.80 MG/DL H 06/02/17 2024 Vancomycin Level Trough 20.4 UG/ML H 06/04/17 0509 Vital Signs Label Value Date Time Patient Temperature 99.5 degrees F 06/04/17 1200 Temperature Source Temporal 06/04/17 1200 Blood Pressure Assessment 125/80 (95) 06/04/17 1200 Respiratory Rate 20 bpm 06/04/17 1202 Micro Microbiology 06/04/17 Blood Culture, Received Pending 06/02/17 Blood Culture - Preliminary, Resulted No growth after 24 hours . All specim... 06/02/17 Blood Culture - Preliminary, Resulted No growth after 24 hours . All specim... 06/02/17 Respiratory Virus Panel (PCR) (ROSEANNE) - Final, Complete 06/02/17 Influenza Virus Type A Antigen - Final, Complete 06/02/17 Influenza Virus Type B Antigen - Final, Complete 06/04/17 Urine Culture, Received Pending Creatinine Clearance Date:06/03/17. Creatinine Clearance: [74.3]calculated. Pending Labs Vancomycin trough due 06/04@0500 Assessment and Plan Maintaining Current Dose?: Yes Reason for dose change: No Dose Change Pharmacist Note Pharmacist Note 06/05: Patient's trough came back at 20.4. It was drawn 4 hours early. Vancomycin 1gm IV q12h will be continued for now. We will continue to monitor and make adjustments as necessary. Date: 06/03/17. Pharmacist note:66YOM admitted w/multifocal pneumonia.Ht=74",Wt= 90.91 kg,Scr=1.17,calculated CRCL=74.3,Treating with Pip/Tazo 3.375 Gm IV Q6H plus Vancomycin per Pharmacy consult.Vancomycin 1 GM in ED 06/03@0130,then will begin 1 gram IV Q6H 06/03@0600. First trough is to be drawn 06/04@0500(prior to thr 4th dose).Will continue to follow levels and labs [facility] Jun 04, 2017 13:25
[2017-06-05] VITALS (7 sets, daily range): BP systolic 121–140; BP diastolic 68–74
[2017-06-05] MEDS: PIPERACILLIN/TAZOBACTAM SOD 3.375 GM in APPROPRIATE DILUENT 1 EA IV SCH ×4 (05:32→22:25)
[2017-06-05] MEDS: LEVOTHYROXINE 88MCG TABLET (0.088 MG) PO SCH (05:32)
[2017-06-05] MEDS: ACETAMINOPHEN TAB 650MG DOSE (2X325MG) PO PRN (05:32)
[2017-06-05 06:01] LABS: MEAN CORPUSCULAR HEMOGLOBIN 32.5 pg (27.0-33.0); MEAN CORPUSCULAR HGB CONC 31.9 g/dl (32.0-36.5); PLATELET COUNT, AUTOMATED 575 10^3/uL (150-450); RED CELL DISTRIBUTION WIDTH 21.8 % (11.5-14.5); WHITE BLOOD COUNT 16.2 10^3/uL (4.0-10.0)
[2017-06-05 06:22] LABS: ANION GAP 9 MEQ/L (8-16); BLOOD UREA NITROGEN 12 MG/DL (7-18); CALCIUM LEVEL 8.4 MG/DL (8.8-10.2); CARBON DIOXIDE LEVEL 25 MEQ/L (21-32); CHLORIDE LEVEL 104 MEQ/L (98-107); CREATININE FOR GFR 1.04 MG/DL (0.70-1.30); GLOMERULAR FILTRATION RATE > 60.0 (>49); GLUCOSE, FASTING 106 MG/DL (80-110); POTASSIUM SERUM 3.8 MEQ/L (3.5-5.1); SODIUM LEVEL 138 MEQ/L (136-145)
[2017-06-05] MEDS: SENOKOT S TAB PO SCH ×2 (08:17→20:13)
[2017-06-05] MEDS: TAMSULOSIN 0.4 MG CAP PO SCH (08:17)
[2017-06-05] MEDS: APIXABAN 5 MG TAB (ELIQUIS) PO SCH ×2 (08:17→20:13)
[2017-06-05] MEDS: METOPROLOL TART 50 MG TAB PO SCH ×2 (08:17→20:14)
[2017-06-05] MEDS: MORPHINE 30 MG SA TAB PO SCH ×2 (08:18→20:13)
[2017-06-05] MEDS: PERCOCET 5MG/325MG TAB PO PRN ×2 (09:36→17:25)
[2017-06-05] MEDS: VANCOMYCIN HCL 1,000 MG, VIAL MATE ADAPTER 1 EACH in D5W 250 ML IV SCH ×2 (09:36→20:12)
[2017-06-05] MEDS: methylPREDNISolone INJ 125 MG/2 ML VIAL (J2930) IV SCH ×2 (09:37→17:23)
--- NOTE | 2017-06-05 10:50 | IPNPDOC ---
Text Note Date of Service The patient was seen on 06/05/17. NOTE Subjective: Patient seen and examined at bedside. Still complains of shortness of breath. OBJECTIVE: GENERAL: Mild distress secondary to persistent shortness of breath. HEENT: NC/AT, EOMI, PERRL CARDIOVASCULAR: +S1S2, RRR LUNGS: diminished breath sounds left ABDOMEN: +BS, soft, +tender LLQ, no guarding EXTREMITIES: No edema. No cyanosis. Psych: AAOx3 ASSESSMENT AND PLAN: 1. Multifocal pneumonia. - complicated with immunocompromise secondary to chemotherapy - cultures pending - continue broad spectrum abx - vanc/zosyn - mrsa screen pending - started IV steroids, IS, mucolytics, nebs 2. SOB - as per #1 possibly complicated with left pleural effusion - d/w pulm assistance appreciated - possible adverse effect chemo - Alimta/platin 3. urinary retention - mgcowan catheter for now - TOV in 24 hours 4. Stage IV non-small cell lung cancer. Patient just had 12 rounds of chemotherapy done in [facility] [place]. Patient's oncologist is Dr. William. Alimta/cisplatin. 5. History of hypertension - continue home regimen 6. Hypothyroidism - continue Synthroid 7. History of deep venous thrombosis (DVT). Patient has inferior vena cava (IVC) filter. Patient is on Xarelto. 8. DVT prophylaxis. Patient is on Xarelto. Dispo: guarded prognosis, discussed advanced directives, patient/ decided for DNR/DNI, continue IV steroids/abx VS,Fishbone, I+O VS, Fishbone, I+O Laboratory Tests 06/05/17 05:17 Red Blood Count 2.52 L, Mean Corpuscular Volume 102.0 H, Mean Corpuscular Hemoglobin 32.5, Mean Corpuscular Hemoglobin Concent 31.9 L, Red Cell Distribution Width 21.8 H, Calcium Level 8.4 L Vital Signs Date Time Temp Pulse Resp B/P (MAP) Pulse Ox O2 Delivery O2 Flow Rate FiO2 06/05/17 09:36 20 Nasal Cannula 2.0 06/05/17 08:17 70 125/68 06/05/17 08:00 97.0 92 06/02/17 23:45 96 I&O- Last 24 Hours up to 6 AM 06/06/17 06:00 Intake Total 240 ml Output Total 750 ml Balance -510 ml ESE OLSON MD Jun 05, 2017 10:50
[2017-06-05] MEDS ORDERED: MOM 30ML SUSPENSION UDC PO ONE (15:45)
[2017-06-06] MEDS: methylPREDNISolone INJ 125 MG/2 ML VIAL (J2930) IV SCH ×3 (01:10→16:36)
[2017-06-06] MEDS: PERCOCET 5MG/325MG TAB PO PRN ×3 (03:19→16:36)
[2017-06-06 04:00] VITALS: BP 145/75
[2017-06-06] MEDS: MORPHINE 2 MG/ML 1ML SYRINGE IV PRN ×2 (04:57→15:23)
[2017-06-06] MEDS: PIPERACILLIN/TAZOBACTAM SOD 3.375 GM in APPROPRIATE DILUENT 1 EA IV SCH ×4 (05:54→22:28)
[2017-06-06] MEDS: LEVOTHYROXINE 88MCG TABLET (0.088 MG) PO SCH (05:54)
[2017-06-06 05:55] LABS: MEAN CORPUSCULAR HEMOGLOBIN 33.2 pg (27.0-33.0); MEAN CORPUSCULAR HGB CONC 31.5 g/dl (32.0-36.5); MEAN CORPUSCULAR VOLUME 105.3 fl (80.0-96.0); PLATELET COUNT, AUTOMATED 642 10^3/uL (150-450); RED CELL DISTRIBUTION WIDTH 21.6 % (11.5-14.5); WHITE BLOOD COUNT 15.3 10^3/uL (4.0-10.0)
[2017-06-06 06:17] LABS: ANION GAP 9 MEQ/L (8-16); BLOOD UREA NITROGEN 17 MG/DL (7-18); CARBON DIOXIDE LEVEL 24 MEQ/L (21-32); CHLORIDE LEVEL 107 MEQ/L (98-107); CREATININE FOR GFR 1.06 MG/DL (0.70-1.30); GLOMERULAR FILTRATION RATE > 60.0 (>49); GLUCOSE, FASTING 151 MG/DL (80-110); MAGNESIUM LEVEL 2.4 MG/DL (1.8-2.4); POTASSIUM SERUM 4.2 MEQ/L (3.5-5.1); SODIUM LEVEL 140 MEQ/L (136-145)
[2017-06-06] MEDS ORDERED: IPRATROPIUM 0.5MG/ALBUTEROL 2.5MG INH SOL UD 3ML (DUONEB)(J7620) NEB PRN (06:45)
[2017-06-06 07:10] LABS: ABG BASE EXCESS -1.3 (-2.0-2.0); ABG HCO3 22.3 MEQ/L (22.0-26.0); ABG PARTIAL PRESSURE CO2 33.1 mmHg (35.0-45.0); ABG PARTIAL PRESSURE O2 70.4 mmHg (75.0-100.0); ABG STANDARD HCO3 23.4 MEQ/L (22.0-26.0); ABG TOTAL CO2 23.4 MEQ/L (23.0-31.0); ABG pH (ARTERIAL) 7.447 UNITS (7.350-7.450)
[2017-06-06] MEDS: IPRATROPIUM 0.5MG/ALBUTEROL 2.5MG INH SOL UD 3ML (DUONEB)(J7620) NEB SCH ×3 (07:30→20:54)
--- NOTE | 2017-06-06 07:32 | IPNPDOC ---
Text Note Date of Service The patient was seen on 06/06/17. NOTE Subjective: Patient seen and examined at bedside. Episode of acute shortness of breath this morning while using commode for bowel movement. Denied any chest pains or other symptoms. Improved with rest, lying down and supplemental oxygen. OBJECTIVE: GENERAL: Mild distress secondary to persistent shortness of breath. HEENT: NC/AT, EOMI, PERRL CARDIOVASCULAR: +S1S2, RRR LUNGS: diminished breath sounds left>right ABDOMEN: +BS, soft, +tender LLQ, no guarding EXTREMITIES: No edema. No cyanosis. Psych: AAOx3 ASSESSMENT AND PLAN: 1. Multifocal pneumonia. - complicated with immunocompromise secondary to chemotherapy - BCx NTD - continue broad spectrum abx - vanc/zosyn - mrsa screen pending - continue IV steroids, IS, mucolytics, nebs 2. SOB - as per #1 possibly complicated with left pleural effusion - d/w pulm - assistance appreciated - possible adverse effect chemo - Alimta/cisplatin 3. urinary retention - trial of voiding today 4. Stage IV non-small cell lung cancer. Patient just had 12 rounds of chemotherapy done in [facility]. Patient's oncologist is Dr. William. Alimta/cisplatin. 5. History of hypertension - continue home regimen 6. Hypothyroidism - continue Synthroid 7. History of deep venous thrombosis (DVT). Patient has inferior vena cava (IVC) filter. Patient is on Xarelto. 8. DVT prophylaxis. Patient is on Xarelto. Dispo: guarded prognosis, discussed advanced directives, patient/ decided for DNR/DNI, continue IV steroids/IV abx, supplemental oxygen VS,Ciprianobone, I+O VS, Fishbone, I+O Laboratory Tests 06/05/17 17:54 06/06/17 05:30 Red Blood Count 2.62 L, Mean Corpuscular Volume 105.3 H, Mean Corpuscular Hemoglobin 33.2 H, Mean Corpuscular Hemoglobin Concent 31.5 L, Red Cell Distribution Width 21.6 H, Calcium Level 9.0 Vital Signs Date Time Temp Pulse Resp B/P (MAP) Pulse Ox O2 Delivery O2 Flow Rate FiO2 06/06/17 05:15 24 06/06/17 04:00 97.2 62 145/75 (98) 90 Nasal Cannula 4.0 06/02/17 23:45 96 ESE OLSON MD Jun 06, 2017 07:32
--- NOTE | 2017-06-06 07:56 | REP ---
Portable chest, 07:20 a.m., single AP view, patient sitting: Comparison 06/04/2017. The left hilar mass is again identified. There are multiple confluent infiltrates throughout the right lung, significantly increased in size. There is a focal infiltrate in the left upper lobe, also increased in size. Cardiac size is normal. There is a right IJ Urriaa-D-Bovh with the tip in the right atrium in satisfactory position, unchanged. Impression: Increasing bilateral infiltrates. Left hilar mass. Signed by Stevo Carter MD 06/06/2017 07:47 A
[2017-06-06 08:00] VITALS: BP 103/64
[2017-06-06] MEDS: APIXABAN 5 MG TAB (ELIQUIS) PO SCH ×2 (09:11→21:22)
[2017-06-06] MEDS: VANCOMYCIN HCL 1,000 MG, VIAL MATE ADAPTER 1 EACH in D5W 250 ML IV SCH (09:11)
[2017-06-06] MEDS: TAMSULOSIN 0.4 MG CAP PO SCH (09:12)
[2017-06-06] MEDS: SENOKOT S TAB PO SCH ×2 (09:12→21:22)
[2017-06-06] MEDS: MORPHINE 30 MG SA TAB PO SCH ×2 (09:12→21:23)
[2017-06-06] MEDS: METOPROLOL TART 50 MG TAB PO SCH ×2 (09:12→21:23)
[2017-06-06] MEDS ORDERED: SLF 3 ML SYR IV PRN (10:45)
[2017-06-06 12:00] VITALS: BP 120/63
[2017-06-06] MEDS: SLF 3 ML SYR IV SCH ×2 (15:23→21:23)
[2017-06-06 16:00] VITALS: BP 129/61
[2017-06-06 20:00] VITALS: BP 117/59
--- NOTE | 2017-06-06 20:45 | PHACANCOPD ---
PHARMACY VANCOMYCIN DOSING Pt Demographics Demographics Patient Age:66 , Weight:91.500 , Gender: male Adjusted Body Weight Date: 06/03/17, Adjusted Body Weight: [85.7] Kg Events Past 24 Hours Events Past 24 Hours: NO: Dialysis, Diuretic Therapy, Change in CrCl, Fever, Elevation in WBC, Pending Diagnostics, Pending Procedures, Other Vancomycin Vancomycin indication: MULTIFOCAL PNEUMONIA Vancomycin Target Ranges: 15-20 mcg/ml Vancomycin Load Y/N: No Load Dose Date Time Vancomycin Load Dose: Date: Time: Vancomycin Dose Date: 06/03/17. Current Vancomycin Dose: [1GM@0130,then Q12h@06] Intermittent Dosing?: No Labs Labs Vital Signs Label Value Date Time Patient Temperature 99.2 degrees F 06/06/17 1600 Temperature Source Temporal 06/06/17 1600 Patient Temperature 98.3 degrees F 06/06/17 2000 Temperature Source Temporal 06/06/171999 Item Value Date Time White Blood Count 16.2 10^3/uL H 06/05/17 0517 White Blood Count 15.3 10^3/uL H 06/06/17 0530 White Blood Count 15.4 10^3/uL H 06/04/17 0509 Creatinine 1.07 MG/DL 06/04/17 0509 Creatinine 1.04 MG/DL 06/05/17 0517 Creatinine 1.06 MG/DL 06/06/17 0530 Vancomycin Level Trough 21.5 UG/ML H 06/06/17 1958 Vancomycin Level Trough 20.4 UG/ML H 06/04/17 0509 Micro Microbiology 06/04/17 Blood Culture - Preliminary, Resulted No Growth after 48 hours. All Specime... 06/02/17 Blood Culture - Preliminary, Resulted No Growth after 72 hours. All specime... 06/02/17 Blood Culture - Preliminary, Resulted No Growth after 72 hours. All specime... 06/06/17 MRSA Screen, Received Pending 06/02/17 Respiratory Virus Panel (PCR) (ROSEANNE) - Final, Complete 06/02/17 Influenza Virus Type A Antigen - Final, Complete 06/02/17 Influenza Virus Type B Antigen - Final, Complete 06/04/17 Urine Culture - Final, Complete Creatinine Clearance Date:06/03/17. Creatinine Clearance: [74.3]calculated. Pending Labs Vancomycin trough due 06/04@0500 Assessment and Plan Maintaining Current Dose?: No Reason for dose change: Trough too high Pharmacist Note Pharmacist Note 06/06: Trough drawn today came back at 21.5mcg/ml. This trough is above our goal of 15-20mcg/ml. I have changed dosing to 1G IV Q18H. We will continue to monitor and adjust dose as needed. 06/05: Patient's trough came back at 20.4. It was drawn 4 hours early. Vancomycin 1gm IV q12h will be continued for now. We will continue to monitor and make adjustments as necessary. Date: 06/03/17. Pharmacist note:66YOM admitted w/multifocal pneumonia.Ht=74",Wt= 90.91 kg,Scr=1.17,calculated CRCL=74.3,Treating with Pip/Tazo 3.375 Gm IV Q6H plus Vancomycin per Pharmacy consult.Vancomycin 1 GM in ED 06/03@0130,then will begin 1 gram IV Q6H 06/03@0600. First trough is to be drawn 06/04@0500(prior to thr 4th dose).Will continue to follow levels and labs [facility] Jun 06, 2017 20:45
[2017-06-06 23:59] VITALS: BP 132/63
[2017-06-07] MEDS: PERCOCET 5MG/325MG TAB PO PRN ×5 (00:18→23:28)
[2017-06-07] MEDS: methylPREDNISolone INJ 125 MG/2 ML VIAL (J2930) IV SCH ×3 (00:19→16:31)
[2017-06-07] MEDS: IPRATROPIUM 0.5MG/ALBUTEROL 2.5MG INH SOL UD 3ML (DUONEB)(J7620) NEB SCH ×5 (02:00→23:38)
[2017-06-07] MEDS: MORPHINE 2 MG/ML 1ML SYRINGE IV PRN ×3 (03:42→16:31)
[2017-06-07] MEDS: VANCOMYCIN HCL 1,000 MG, VIAL MATE ADAPTER 1 EACH in D5W 250 ML IV SCH ×2 (03:42→21:40)
[2017-06-07 04:00] VITALS: BP 123/68
[2017-06-07 04:04] LABS: MEAN CORPUSCULAR HEMOGLOBIN 33.1 pg (27.0-33.0); MEAN CORPUSCULAR HGB CONC 31.7 g/dl (32.0-36.5); MEAN CORPUSCULAR VOLUME 104.3 fl (80.0-96.0); PLATELET COUNT, AUTOMATED 671 10^3/uL (150-450); RED CELL DISTRIBUTION WIDTH 21.2 % (11.5-14.5); WHITE BLOOD COUNT 26.2 10^3/uL (4.0-10.0)
[2017-06-07 04:28] LABS: ANION GAP 6 MEQ/L (8-16); BLOOD UREA NITROGEN 25 MG/DL (7-18); CALCIUM LEVEL 9.2 MG/DL (8.8-10.2); CARBON DIOXIDE LEVEL 27 MEQ/L (21-32); CHLORIDE LEVEL 105 MEQ/L (98-107); CREATININE FOR GFR 1.12 MG/DL (0.70-1.30); GLOMERULAR FILTRATION RATE > 60.0 (>49); GLUCOSE, FASTING 176 MG/DL (80-110); MAGNESIUM LEVEL 2.5 MG/DL (1.8-2.4); POTASSIUM SERUM 4.2 MEQ/L (3.5-5.1); SODIUM LEVEL 138 MEQ/L (136-145)
[2017-06-07] MEDS: LEVOTHYROXINE 88MCG TABLET (0.088 MG) PO SCH (05:23)
[2017-06-07] MEDS: PIPERACILLIN/TAZOBACTAM SOD 3.375 GM in APPROPRIATE DILUENT 1 EA IV SCH ×4 (05:24→23:27)
[2017-06-07] MEDS: SLF 3 ML SYR IV SCH ×3 (05:24→21:40)
[2017-06-07] MEDS ORDERED: FUROSEMIDE 40 MG/4 ML VIAL (J1940) IV ONE (06:00)
[2017-06-07 07:00] VITALS: BP 145/76
--- NOTE | 2017-06-07 07:17 | IPNPDOC ---
Text Note Date of Service The patient was seen on 06/07/17. NOTE Subjective: Patient seen and examined at bedside. Sleeping well this morning, still requiring supplemental oxygen. Stated he was quite SOB with exertion last night. OBJECTIVE: GENERAL: NAD, lying comfortably in bed HEENT: NC/AT, EOMI, PERRL CARDIOVASCULAR: +S1S2, RRR LUNGS: diminished breath sounds left>right ABDOMEN: +BS, soft, +tender LLQ, no guarding EXTREMITIES: No edema. No cyanosis. Psych: AAOx3 ASSESSMENT AND PLAN: 1. Multifocal pneumonia. - complicated with immunocompromise secondary to chemotherapy - BCx NTD - continue broad spectrum abx - vanc/zosyn - mrsa screen pending - continue IV steroids, IS, mucolytics, nebs 2. SOB - as per #1 possibly complicated with left pleural effusion - d/w pulm - assistance appreciated - possible adverse effect chemo - Alimta/cisplatin - will implement iv lasix today 3. Bradycardia - will d/w cardiology - adjusting bb with hold parameters 3. urinary retention - keeping mcgowan catheter given high risk of fall and iv diuretics 4. Stage IV non-small cell lung cancer. Patient just had 12 rounds of chemotherapy done in [facility]. Patient's oncologist is Dr. William. Alimta/cisplatin. 5. History of hypertension - continue home regimen 6. Hypothyroidism - continue Synthroid 7. History of deep venous thrombosis (DVT). Patient has inferior vena cava (IVC) filter. Patient is on Xarelto. 8. DVT prophylaxis. Patient is on Xarelto. Dispo: guarded prognosis, discussed advanced directives, patient/ decided for DNR/DNI, continue IV steroids/IV abx, IV lasix, supplemental oxygen VS,Fishbone, I+O VS, Fishbone, I+O Laboratory Tests 06/07/17 03:17 Red Blood Count 2.54 L, Mean Corpuscular Volume 104.3 H, Mean Corpuscular Hemoglobin 33.1 H, Mean Corpuscular Hemoglobin Concent 31.7 L, Red Cell Distribution Width 21.2 H, Calcium Level 9.2 Vital Signs Date Time Temp Pulse Resp B/P (MAP) Pulse Ox O2 Delivery O2 Flow Rate FiO2 06/07/17 06:25 20 06/07/17 04:00 97.7 71 123/68 (86) 93 Nasal Cannula 4.0 06/02/17 23:45 96 ESE OLSON MD Jun 07, 2017 07:17
[2017-06-07] MEDS: METOPROLOL TART 50 MG TAB PO SCH ×2 (09:10→21:39)
[2017-06-07] MEDS: TAMSULOSIN 0.4 MG CAP PO SCH (09:10)
[2017-06-07] MEDS: MORPHINE 30 MG SA TAB PO SCH ×2 (09:10→21:39)
[2017-06-07] MEDS: SENOKOT S TAB PO SCH ×2 (09:11→21:39)
[2017-06-07] MEDS: APIXABAN 5 MG TAB (ELIQUIS) PO SCH ×2 (09:11→21:38)
[2017-06-07] MEDS: LACTULOSE 20 GM/30 ML SYRUP UD PO PRN (10:04)
[2017-06-07 12:00] VITALS: BP 117/62
[2017-06-07 16:00] VITALS: BP 124/64
[2017-06-07 20:00] VITALS: BP 129/69
[2017-06-07] MEDS ORDERED: SODIUM CHLORIDE NASAL 0.65% SPRAY BTL (OCEAN) PRN (20:15)
--- NOTE | 2017-06-07 21:16 | ECGEPIP ---
Stationary ECG Study [facility] Test Date: 2017-06-07 Pat Name: CAROLYN MELLO Department: Room: [place] [address] Gender: M [employer]worker [employer]: JULIET : 1950 Requested By: ESE Blank Order Number: [id number] Reading MD: Saw Ortega Measurements Intervals [place] Rate: 79 P: 52 HI: 178 QRS: 44 QRSD: 109 T: 9 QT: 409 QTc: 470 Interpretive Statements SINUS RHYTHM NONSPECIFIC ST & T-WAVE ABNORMALITY Electronically Signed On 06-07-2017 21:15:49 EST by Saw Ortega
[2017-06-07 23:32] VITALS: O2SAT 91
[2017-06-08] VITALS (7 sets, daily range): BP systolic 127–142; BP diastolic 61–70; O2SAT 92
[2017-06-08] MEDS: methylPREDNISolone INJ 125 MG/2 ML VIAL (J2930) IV SCH ×2 (00:45→12:09)
[2017-06-08 04:48] LABS: MEAN CORPUSCULAR HEMOGLOBIN 33.5 pg (27.0-33.0); MEAN CORPUSCULAR HGB CONC 31.9 g/dl (32.0-36.5); PLATELET COUNT, AUTOMATED 670 10^3/uL (150-450); WHITE BLOOD COUNT 27.7 10^3/uL (4.0-10.0)
[2017-06-08] MEDS: PIPERACILLIN/TAZOBACTAM SOD 3.375 GM in APPROPRIATE DILUENT 1 EA IV SCH ×4 (05:07→22:59)
[2017-06-08] MEDS: LEVOTHYROXINE 88MCG TABLET (0.088 MG) PO SCH (05:07)
[2017-06-08] MEDS: SLF 3 ML SYR IV SCH ×3 (05:07→22:00)
[2017-06-08 05:11] LABS: ANION GAP 8 MEQ/L (8-16); BLOOD UREA NITROGEN 30 MG/DL (7-18); CARBON DIOXIDE LEVEL 25 MEQ/L (21-32); CHLORIDE LEVEL 107 MEQ/L (98-107); CREATININE FOR GFR 1.24 MG/DL (0.70-1.30); GLOMERULAR FILTRATION RATE > 60.0 (>49); GLUCOSE, FASTING 167 MG/DL (80-110); MAGNESIUM LEVEL 2.1 MG/DL (1.8-2.4); POTASSIUM SERUM 4.2 MEQ/L (3.5-5.1); SODIUM LEVEL 140 MEQ/L (136-145)
[2017-06-08] MEDS: PERCOCET 5MG/325MG TAB PO PRN ×3 (05:52→18:00)
[2017-06-08 06:49] LABS: ABG BASE EXCESS -0.8 (-2.0-2.0); ABG HCO3 22.8 MEQ/L (22.0-26.0); ABG PARTIAL PRESSURE CO2 33.2 mmHg (35.0-45.0); ABG PARTIAL PRESSURE O2 60.9 mmHg (75.0-100.0); ABG STANDARD HCO3 23.8 MEQ/L (22.0-26.0); ABG TOTAL CO2 23.8 MEQ/L (23.0-31.0); ABG pH (ARTERIAL) 7.454 UNITS (7.350-7.450)
[2017-06-08] MEDS: IPRATROPIUM 0.5MG/ALBUTEROL 2.5MG INH SOL UD 3ML (DUONEB)(J7620) NEB SCH ×3 (07:09→19:50)
--- NOTE | 2017-06-08 07:24 | IPNPDOC ---
Text Note Date of Service The patient was seen on 06/08/17. NOTE Subjective: Patient seen and examined at bedside. Sleeping well this morning, requiring increasing supplemental oxygen. Stated he was feeling good last night though. This morning states he had a good night sleep and is feeling better. He did have a 16 beat run of asymptomatic VT last night. OBJECTIVE: GENERAL: NAD, lying comfortably in bed HEENT: NC/AT, EOMI, PERRL CARDIOVASCULAR: +S1S2, RRR LUNGS: good air movement, coarse breath sounds RLL ABDOMEN: +BS, soft, +tender LLQ, no guarding EXTREMITIES: No edema. No cyanosis. Psych: AAOx3 ASSESSMENT AND PLAN: 1. Multifocal pneumonia. - complicated with immunocompromise secondary to chemotherapy - BCx NTD, MRSA screen negative - dc vanco, continue zosyn - taper steroids - continue IS, mucolytics, nebs 2. SOB - as per #1 possibly complicated with left pleural effusion - d/w pulm - assistance appreciated - possible adverse effect chemo - Alimta/cisplatin 3. Bradycardia - no further episodes - bb with hold parameters 3. urinary retention - trial of voiding today 4. Stage IV non-small cell lung cancer. Patient just had 12 rounds of chemotherapy done in [facility]. Patient's oncologist is Dr. William. Alimta/cisplatin. 5. History of hypertension - continue home regimen 6. Hypothyroidism - continue Synthroid 7. History of deep venous thrombosis (DVT). Patient has inferior vena cava (IVC) filter. Patient is on Xarelto. 8. DVT prophylaxis. Patient is on Xarelto. Dispo: guarded prognosis, discussed advanced directives, patient/ decided for DNR/DNI, continue IV steroids/IV abx, supplemental oxygen VS,Fishbone, I+O VS, Fishbone, I+O Laboratory Tests 06/08/17 04:44 Red Blood Count 2.60 L, Mean Corpuscular Volume 105.0 H, Mean Corpuscular Hemoglobin 33.5 H, Mean Corpuscular Hemoglobin Concent 31.9 L, Red Cell Distribution Width 21.0 H, Calcium Level 9.0 Vital Signs Date Time Temp Pulse Resp B/P (MAP) Pulse Ox O2 Delivery O2 Flow Rate FiO2 06/08/17 06:22 22 06/08/17 05:52 Nasal Cannula 5.0 06/08/17 04:00 98.2 66 135/66 (89 93 06/02/17 23:45 96 ESE OLSON MD Jun 08, 2017 07:24
--- NOTE | 2017-06-08 07:59 | REP ---
Portable chest, 07:43 a.m., single AP view, patient sitting: Comparison is 06/06/2017. There are diffuse infiltrates throughout the right upper and lower lobes, unchanged. There is a focal infiltrate in the left upper lobe, unchanged. There is a left hilar mass, unchanged. No pleural effusions. Cardiac size is normal. There is a right IJ central venous catheter with the tip in the right atrium, unchanged. Impression: No interval change. Signed by Stevo Carter MD 06/08/2017 07:50 A
[2017-06-08] MEDS: TAMSULOSIN 0.4 MG CAP PO SCH (08:48)
[2017-06-08] MEDS: LACTULOSE 20 GM/30 ML SYRUP UD PO PRN (08:48)
[2017-06-08] MEDS: SENOKOT S TAB PO SCH ×2 (08:48→20:16)
[2017-06-08] MEDS: APIXABAN 5 MG TAB (ELIQUIS) PO SCH ×2 (08:48→20:16)
[2017-06-08] MEDS: METOPROLOL TART 50 MG TAB PO SCH ×2 (08:49→20:19)
[2017-06-08] MEDS: MORPHINE 30 MG SA TAB PO SCH ×2 (08:49→20:19)
[2017-06-08] MEDS: MORPHINE 2 MG/ML 1ML SYRINGE IV PRN (11:29)
[2017-06-09] VITALS (7 sets, daily range): BP systolic 114–148; BP diastolic 64–76
[2017-06-09] MEDS: methylPREDNISolone INJ 125 MG/2 ML VIAL (J2930) IV SCH (00:07)
[2017-06-09] MEDS: PERCOCET 5MG/325MG TAB PO PRN ×4 (00:07→23:38)
[2017-06-09] MEDS: IPRATROPIUM 0.5MG/ALBUTEROL 2.5MG INH SOL UD 3ML (DUONEB)(J7620) NEB SCH ×4 (02:00→20:38)
[2017-06-09 05:28] LABS: MEAN CORPUSCULAR HEMOGLOBIN 32.7 pg (27.0-33.0); MEAN CORPUSCULAR HGB CONC 31.3 g/dl (32.0-36.5); MEAN CORPUSCULAR VOLUME 104.5 fl (80.0-96.0); PLATELET COUNT, AUTOMATED 669 10^3/uL (150-450); RED CELL DISTRIBUTION WIDTH 21.2 % (11.5-14.5); WHITE BLOOD COUNT 28.2 10^3/uL (4.0-10.0)
[2017-06-09] MEDS: SLF 3 ML SYR IV SCH ×3 (05:36→22:00)
[2017-06-09] MEDS: PIPERACILLIN/TAZOBACTAM SOD 3.375 GM in APPROPRIATE DILUENT 1 EA IV SCH ×4 (05:36→23:38)
[2017-06-09] MEDS: LEVOTHYROXINE 88MCG TABLET (0.088 MG) PO SCH (05:36)
[2017-06-09 05:48] LABS: ANION GAP 8 MEQ/L (8-16); BLOOD UREA NITROGEN 30 MG/DL (7-18); CALCIUM LEVEL 9.5 MG/DL (8.8-10.2); CARBON DIOXIDE LEVEL 27 MEQ/L (21-32); CHLORIDE LEVEL 105 MEQ/L (98-107); CREATININE FOR GFR 1.07 MG/DL (0.70-1.30); GLOMERULAR FILTRATION RATE > 60.0 (>49); GLUCOSE, FASTING 156 MG/DL (80-110); MAGNESIUM LEVEL 2.4 MG/DL (1.8-2.4); POTASSIUM SERUM 4.4 MEQ/L (3.5-5.1); SODIUM LEVEL 140 MEQ/L (136-145)
[2017-06-09] MEDS: FINASTERIDE 5 MG TAB PO SCH (09:08)
[2017-06-09] MEDS: SENOKOT S TAB PO SCH ×2 (09:08→20:34)
[2017-06-09] MEDS: TAMSULOSIN 0.4 MG CAP PO SCH (09:08)
[2017-06-09] MEDS: APIXABAN 5 MG TAB (ELIQUIS) PO SCH ×2 (09:08→20:34)
[2017-06-09] MEDS: MORPHINE 30 MG SA TAB PO SCH ×2 (09:09→20:34)
[2017-06-09] MEDS: METOPROLOL TART 50 MG TAB PO SCH ×2 (09:10→20:33)
--- NOTE | 2017-06-09 12:00 | IPNPDOC ---
Text Note Date of Service The patient was seen on 06/09/17. NOTE Subjective: Patient seen and examined at bedside. Having difficulty with urination, is very reluctant to have another mcgowan catheter placed. states this has been a long standing issue that has been worsening. OBJECTIVE: GENERAL: NAD, lying comfortably in bed HEENT: NC/AT, EOMI, PERRL CARDIOVASCULAR: +S1S2, RRR LUNGS: good air movement, coarse breath sounds RLL ABDOMEN: +BS, soft, +tender LLQ, no guarding EXTREMITIES: No edema. No cyanosis. Psych: AAOx3 ASSESSMENT AND PLAN: 1. Multifocal pneumonia. - complicated with immunocompromise secondary to chemotherapy - BCx NTD, MRSA screen negative - dc vanco, dc zosyn - taper steroids - continue IS, mucolytics, nebs 2. SOB - as per #1 possibly complicated with left pleural effusion - d/w pulm - assistance appreciated - possible adverse effect chemo - Alimta/cisplatin - last RT was 2015 3. Bradycardia - no further episodes - bb with hold parameters 3. urinary retention - increased flomax, started finasteride 4. Stage IV non-small cell lung cancer. Patient just had 12 rounds of chemotherapy done in [facility]. Patient's oncologist is Dr. William. Alimta/cisplatin. 5. History of hypertension - continue home regimen 6. Hypothyroidism - continue Synthroid 7. History of deep venous thrombosis (DVT). Patient has inferior vena cava (IVC) filter. Patient is on Xarelto. 8. DVT prophylaxis. Patient is on Xarelto. Dispo: guarded prognosis, hospice consultation pending, urinary retention, may need mcgowan catheter VS,Fishbone, I+O VS, Fishbone, I+O Laboratory Tests 06/09/17 05:08 Red Blood Count 2.66 L, Mean Corpuscular Volume 104.5 H, Mean Corpuscular Hemoglobin 32.7, Mean Corpuscular Hemoglobin Concent 31.3 L, Red Cell Distribution Width 21.2 H, Calcium Level 9.5 Vital Signs Date Time Temp Pulse Resp B/P (MAP) Pulse Ox O2 Delivery O2 Flow Rate FiO2 06/09/17 09:10 72 140/70 06/09/17 09:09 20 High Flow Cannula 5.0 06/09/17 08:00 97.7 92 I&O- Last 24 Hours up to 6 AM 06/10/17 06:00 Intake Total 300 ml Output Total 100 ml Balance 200 ml ESE OLSON MD Jun 09, 2017 12:00
[2017-06-09] MEDS ORDERED: methylPREDNISolone INJ 40 MG/1 ML VIAL (J2920) IV SCH (13:00)
[2017-06-09] MEDS: methylPREDNISolone INJ 40 MG/1 ML VIAL (J2920) IV SCH (13:25)
[2017-06-09] MEDS: MORPHINE 2 MG/ML 1ML SYRINGE IV PRN (15:10)
--- NOTE | 2017-06-09 18:11 | DS.PDOC ---
Discharge Summary General Date of Admission Jun 02, 2017 at 23:46 Date of Discharge Anticipated for 06/10/17 Discharge Summary PROCEDURES PERFORMED DURING STAY: [None]. DISCHARGE DIAGNOSES: 1. NSCLCA with metastatic disease 2. Urinary retention/BPH 3. Respiratory distress - possibly multifocal pneumonia complicated with non- small cell lung CA with metastatic disease 4. HTN 5. DVT 6. Hypothyroidism COMPLICATIONS/CHIEF COMPLAINT: Multifocal Pneumonia. HISTORY OF PRESENT ILLNESS: 66 yo male presents for acute onset shortness of breath, generalized lethargy, requiring supplemental oxygen. HOSPITAL COURSE: Patient admitted for treatment and further evaluation of acute hypoxic respiratory failure. Etiology not clear but presumed to be multifocal pneumonia complicated with underlying non-small cell lung cancer with abdominal metastatic disease. Patient did not improved with broad spectrum antibiotics and high dose steroid therapy. Case was discussed with pulmonology and this was deemed to be secondary to his existing malignancy. Hospital stay was complicated with urinary retention which was also a chronic issue. Patient had great difficulty having a mcgowan catheter place, and it will be determined on day of discharge if he will require this on discharge. Patient and his have elected to discuss palliative care with hospice, and the plan is for discharge home with hospice. DISCHARGE MEDICATIONS: Please see below. To be confirmed on day of discharge. ALLERGIES: Please see below. PROGNOSIS:Poor prognosis ACTIVITY: [As tolerated]. DIET: Regular DISCHARGE PLAN: Home with hospice TIME SPENT ON DISCHARGE: Greater than 30 minutes. Vital Signs/I&Os Vital Signs Date Time Temp Pulse Resp B/P (MAP) Pulse Ox O2 Delivery O2 Flow Rate FiO2 06/09/17 16:00 99.0 76 20 118/67 (84) 91 Nasal Cannula 5.0 I&O- Last 24 Hours up to 6 AM 06/10/17 06:00 Intake Total 810 ml Output Total 930 ml Balance -120 ml Laboratory Data Labs 24H Laboratory Tests 2 06/09/17 05:08: Nucleated Red Blood Cells % (auto) 0.6H, Anion Gap 8, Glomerular Filtration Rate > 60.0, Blood Urea Nitrogen 30H, Creatinine 1.07, Sodium Level 140, Potassium Level 4.4, Chloride Level 105, Carbon Dioxide Level 27, Calcium Level 9.5, Magnesium Level 2.4 CBC/BMP Laboratory Tests 06/09/17 05:08 Red Blood Count 2.66 L, Mean Corpuscular Volume 104.5 H, Mean Corpuscular Hemoglobin 32.7, Mean Corpuscular Hemoglobin Concent 31.3 L, Red Cell Distribution Width 21.2 H, Calcium Level 9.5 Microbiology Microbiology 06/04/17 Blood Culture - Final, Complete NO GROWTH AFTER 5 DAYS 06/02/17 Blood Culture - Final, Complete NO GROWTH AFTER 5 DAYS 06/02/17 Blood Culture - Final, Complete NO GROWTH AFTER 5 DAYS 06/06/17 MRSA Screen - Final, Complete 06/02/17 Respiratory Virus Panel (PCR) (ROSEANNE) - Final, Complete 06/02/17 Influenza Virus Type A Antigen - Final, Complete 06/02/17 Influenza Virus Type B Antigen - Final, Complete 06/04/17 Urine Culture - Final, Complete Discharge Medications Scheduled (Folic Acid) 800 Mcg Cap, 800 MCG PO DAILY, (Reported) Apixaban Base (Eliquis) 5 Mg Tab, 5 MG PO BID, (Reported) Docusate Sod/Senna (Senna-S 8.6-50 mg) 1 Tab Tab, 1 TAB PO BID, (Reported) Levothyroxine Sodium (Synthroid) 88 Mcg Tab, 88 MCG PO DAILY, (Reported) Metoprolol Tartrate (Lopressor) 50 Mg Tab, 50 MG PO BID, (Reported) Morphine Sulfate (Morphine Sulfate ER) 30 Mg Tabcr, 30 MG PO BID, (Reported) Tamsulosin Hydrochloride (Flomax) 0.4 Mg Cap, 0.4 MG PO DAILY, (Reported) Scheduled PRN Ondansetron HCl (Zofran) 8 Mg Tab, 8 MG PO Q8H PRN for NAUSEA, (Reported) Oxycodone/Acetaminophen (Oxycodone/Acetaminophen 5-325 mg) 1 Tab Tab, 1 TAB PO Q4H PRN for PAIN, (Reported) Allergies Coded Allergies: Aspirin (Verified Allergy, Unknown, 05/14/17) Yellow Dye (Verified Allergy, Unknown, yellow dye #5, 05/14/17) ESE OLSON MD Jun 09, 2017 18:11
[2017-06-10] MEDS: IPRATROPIUM 0.5MG/ALBUTEROL 2.5MG INH SOL UD 3ML (DUONEB)(J7620) NEB SCH ×4 (01:21→19:52)
[2017-06-10] MEDS: methylPREDNISolone INJ 40 MG/1 ML VIAL (J2920) IV SCH ×2 (01:38→12:26)
[2017-06-10 04:00] VITALS: BP 134/64
[2017-06-10 05:25] VITALS: BP 133/96
[2017-06-10] MEDS: LEVOTHYROXINE 88MCG TABLET (0.088 MG) PO SCH (05:58)
[2017-06-10] MEDS: PERCOCET 5MG/325MG TAB PO PRN ×3 (05:58→18:46)
[2017-06-10] MEDS: SLF 3 ML SYR IV SCH ×3 (05:59→20:40)
[2017-06-10] MEDS ORDERED: LORA0.5T11 PO (08:45)
[2017-06-10] MEDS: SENOKOT S TAB PO SCH ×2 (08:45→20:40)
[2017-06-10] MEDS: FINASTERIDE 5 MG TAB PO SCH (08:45)
[2017-06-10] MEDS ORDERED: HYOS125TA PO (08:45)
[2017-06-10] MEDS: TAMSULOSIN 0.4 MG CAP PO SCH (08:45)
[2017-06-10] MEDS ORDERED: MORP20SO3 PO (08:45)
[2017-06-10] MEDS: APIXABAN 5 MG TAB (ELIQUIS) PO SCH ×2 (08:45→20:40)
[2017-06-10] MEDS: MORPHINE 30 MG SA TAB PO SCH ×2 (08:46→20:40)
[2017-06-10] MEDS: METOPROLOL TART 50 MG TAB PO SCH ×2 (08:46→20:39)
[2017-06-10 11:54] VITALS: BP 140/72
[2017-06-10] MEDS ORDERED: FLOM5CAP PO (13:18)
[2017-06-10 15:58] VITALS: BP 133/69
[2017-06-10] MEDS: MORPHINE 2 MG/ML 1ML SYRINGE IV PRN (16:33)
[2017-06-10 20:00] VITALS: BP 135/71
[2017-06-10 23:59] VITALS: BP 152/83
[2017-06-11] MEDS: MORPHINE 2 MG/ML 1ML SYRINGE IV PRN ×2 (00:04→05:42)
[2017-06-11] MEDS: methylPREDNISolone INJ 40 MG/1 ML VIAL (J2920) IV SCH (00:05)
[2017-06-11] MEDS: PERCOCET 5MG/325MG TAB PO PRN ×2 (00:47→06:50)
[2017-06-11] MEDS: IPRATROPIUM 0.5MG/ALBUTEROL 2.5MG INH SOL UD 3ML (DUONEB)(J7620) NEB SCH ×2 (01:58→08:00)
[2017-06-11 02:50] VITALS: BP 145/70
[2017-06-11] MEDS: LEVOTHYROXINE 88MCG TABLET (0.088 MG) PO SCH (05:43)
[2017-06-11] MEDS: SLF 3 ML SYR IV SCH (05:44)
[2017-06-11 05:52] VITALS: BP 145/70
--- NOTE | 2017-06-11 08:05 | IPN ---
DATE OF VISIT: 06/10/2017 SUBJECTIVE: Patient seen and examined in the room today. Yesterday there was an incident that patient had worsening and difficulty breathing and it resolved. Patient required higher concentration of oxygen to maintain oxygen saturations. Prior to the events, patient only required 5 liter nasal cannula and patient has been on 10 liter nasal cannula since the incident. Patient stated that he wants to go home for hospice. However, there is no one at home to take care of him at this moment. OBJECTIVE: VITAL SIGNS: Temperature is 98, pulse 75, respirations 20, blood pressure is 139/72, pulse oximetry is 92% with <<1:30>> nasal cannula. (dictation cut off) mild distress. Alert and oriented times three. HEENT: Normocephalic, atraumatic. Extraocular motor grossly intact. CARDIOVASCULAR: Positive S1, S2, regular rate. LUNGS: Coarse lung sounds lower lobe. ABDOMEN: Tenderness to palpation left abdomen. Soft. Bowel sounds present. EXTREMITIES: No edema. No cyanosis. ASSESSMENT AND PLAN: 1. Multifocal pneumonia. 2. Left pleural effusion. 3. Stage IV non-small cell lung cancer. 4. Hypertension. 5. Hypothyroidism. 6. Deep venous thrombosis (DVT) status post inferior vena cava (IVC) filter. 7. Bradycardia. Plan: Patient has a poor prognosis. Patient has talked with hospitalists and patient is moving toward home hospice care. Will anticipate patient may be discharged home with hospice tomorrow.
[2017-06-11 08:06] VITALS: BP 140/80
[2017-06-11] MEDS: METOPROLOL TART 50 MG TAB PO SCH (08:06)
[2017-06-11] MEDS: TAMSULOSIN 0.4 MG CAP PO SCH (08:06)
[2017-06-11] MEDS: SENOKOT S TAB PO SCH (08:06)
[2017-06-11] MEDS: APIXABAN 5 MG TAB (ELIQUIS) PO SCH (08:06)
[2017-06-11] MEDS: FINASTERIDE 5 MG TAB PO SCH (08:06)
[2017-06-11] MEDS: MORPHINE 30 MG SA TAB PO SCH (08:09)
--- NOTE | 2017-06-11 20:13 | DSES ---
DATE OF ADMISSION: 06/02/2017 DATE OF DISCHARGE: 06/11/2017 ADDENDUM: Original discharge note was done on 06/09/2017. However, due to the home arrangement, the patient was not able to be discharged at the anticipated time. Later on 06/10/2017, the patient started to have worsening of the breathing. The patient had increased oxygen demand. On 06/11/2017, the patient finally has arrangements setup for the home hospice and the patient is discharged home on 06/11/2017 in the morning. DISCHARGE DIAGNOSES: 1. Nonsmall-cell lung cancer with metastasis. 2. Urine retention from benign prostatic hypertrophy. 3. Respiratory distress, possibly secondary to multifocal pneumonia, complicated by nonsmall-cell lung cancer with metastasis. 4. Hypertension. 5. Deep vein thrombosis (DVT). 6. Hypothyroidism. DISCHARGE CONDITION: Guarded.
== END 2017-06-11 10:00 | disposition hospice, home (50) | DRG 194 ==
LOC: M ED 18:20 → M ED INP 23:46 → M PCU 06-03 02:31
PROVIDERS: ADMIT Internal Medicine; ATTEND Internal Medicine
DX: J18.9 Pneumonia, unspecified organism (principal); C34.90 Malignant neoplasm of unspecified part of unspecified bronchus or lung; C79.89 Secondary malignant neoplasm of other specified sites; E03.9 Hypothyroidism, unspecified; N40.0 Benign prostatic hyperplasia without lower urinary tract symptoms; Z88.6 Allergy status to analgesic agent; Z79.899 Other long term (current) drug therapy; Z86.718 Personal history of other venous thrombosis and embolism; I10 Essential (primary) hypertension; Z87.891 Personal history of nicotine dependence